=== PATIENT | male | born 1960 ===

== ENCOUNTER 2024-02-25 04:28 | Emergency (ER) | payer BC ==
[2024-02-25] MEDS: Ketorolac 30 MG/ML SDV IM ONE (04:44)
[2024-02-25] MEDS: Lidocaine 2% 5 ML SDV INJECT ONE (05:03)
[2024-02-25 05:47] VITALS: BP 147/82; PULSE 81
[2024-02-25 05:51] LABS: APPEARANCE,URINE CLEAR (CLEAR); BILIRUBIN,URINE NEGATIVE (NEGATIVE); COLOR,URINE YELLOW; GLUCOSE,URINE NEGATIVE (NEGATIVE); KETONES,URINE NEGATIVE (NEGATIVE); LEUKOCYTE ESTERASE,URINE NEGATIVE (NEGATIVE); NITRITE,URINE NEGATIVE (NEGATIVE); OCCULT BLOOD,URINE NEGATIVE (NEGATIVE); PH,URINE 5.5 (5.0-8.0); PROTEIN,URINE NEGATIVE (NEGATIVE); UROBILINOGEN,URINE 0.2 E.U./dL (0.2-1.0)
[2024-02-25] MEDS: Lidocaine 5% 700 MG Patch TOP ONE (05:52)
[2024-02-25] MEDS: Lidocaine 5% 700 MG Patch ONE (05:55)
== END 2024-02-25 06:00 | disposition home or self-care (01) ==
LOC: LB.ED 04:28
DX: S20.221A Contusion of right back wall of thorax, initial encounter (principal); E66.9 Obesity, unspecified; Z68.35 Body mass index [BMI] 35.0-35.9, adult; W01.0XXA Fall on same level from slipping, tripping and stumbling without subsequent striking against object, initial encounter; Y92.481 Parking lot as the place of occurrence of the external cause
CPT/HCPCS: 20552; 72070; 72100; 81003; 96372; 99284; 99284-25; A0425; A0428; A9270-GY; J1885